=== PATIENT | male | born 2000 | race Caucasian/White ===

== ENCOUNTER 2020-04-09 19:31 | Emergency (ER) | payer OTHER ==
[~2020-04-09] VITALS: Ht 177.8 cm; Wt 68.0 kg
[2020-04-09 19:40] VITALS: BP 106/67
--- NOTE | 2020-04-09 20:07 | ED Integumentary General ---
General Chief Complaint: Allergic Reaction Stated Complaint: RASH ALL OVER BODY Nursing Triage Note: PT AMBULATE TO TRIAGE WITH C/O RASH AFTER BEING SPLASHED WITH A CHEMICAL AT WORK. PT STATES THAT THE EXPOSURE WAS AT 1600 YESTERDAY. PT REPORTS TAKING BENEDRYL AND CORTISONE 10 WITHOUT RELIEF. PT REPORTS HE HAS BEEN EXPOSED TO THIS CHEMICAL BEFORE AND THE OTC MEDS HAVE HELPED. Source: patient Exam Limitations: no limitations History of Present Illness Date Seen by Provider: Apr 09, 2020 Time Seen by Provider: 19:56 Initial Comments Patient is a 19-year-old male who presents to the emergency department today with a chief complaint of exposure to a chemical called isocyanate. This chemic al is used to make polyurethane. Patient states that he splashed this on himself yesterday to his forearms and also he got splashed on the top of the head. He has had reactions to this medication in the past. He states normally it causes him to have some hives this is his largest exposure however. Patient states normally he applies cortisone 10 to the affected areas and he has resolution of symptoms fairly quickly. He states it is not working today. He states that when he showered and washed the chemical down onto his shoulders back and chest. He states he is developed significant hives and coalescing of the rash over the course of the last 24 hours. Patient denies any nausea vomiting shortness of breath wheezing. He has no past medical history, no past surgical history, he is not allergic to any medications. The patient does smoke cigarettes and is counseled on cessation. All other review of systems reviewed and negative except as stated. Timing/Duration: yesterday Severity: moderate Location: scalp, torso, extremities Possible Cause: other (Isocyanate) Modifying Factors: improves with topical steriods Associated Symptoms: hives, rash Allergies and Home Medications Allergies Coded Allergies: No Known Allergies (Verified Allergy, Unknown, 04/09/20) Patient Home Medication List Home Medication List Reviewed: Yes Review of Systems Review of Systems Constitutional: no symptoms reported EENTM: see HPI Respiratory: no symptoms reported Cardiovascular: no symptoms reported Gastrointestinal: no symptoms reported Genitourinary: no symptoms reported Musculoskeletal: no symptoms reported Skin: pruritus, rash All Other Systems Reviewed Negative Unless Noted: Yes Past Ztgwfbw-Gkckpv-Epxnqv Hx Patient Social History Alcohol Use: Occasionally Uses Recreational Drug Use: No Smoking Status: Current Everyday Smoker Type Used: Cigarettes 2nd Hand Smoke Exposure: Yes Recent Foreign Travel: No Contact w/Someone Who Travel: No Recent Infectious Disease Expo: No Recent Hopitalizations: No Physical Abuse: No Sexual Abuse: No Mistreated: No Fear: No Seasonal Allergies Seasonal Allergies: No Past Medical History Surgeries: No Respiratory: No Cardiac: No Neurological: No Genitourinary: No Gastrointestinal: No Musculoskeletal: No Endocrine: No HEENT: No Cancer: No Psychosocial: No Integumentary: No Blood Disorders: No Physical Exam Vital Signs Vital Signs - First Documented 04/09/20 19:40 Temp 37.0 Pulse 87 Resp 17 B/P (MAP) 106/67 (80) O2 Delivery Room Air Capillary Refill : Less Than 3 Seconds General Appearance: WD/WN, no apparent distress HEENT: normal ENT inspection Neck: full range of motion Cardiovascular: regular rate, rhythm, no murmur Respiratory: lungs clear, normal breath sounds, no respiratory distress, no accessory muscle use Back: normal inspection Extremities: normal range of motion Skin: normal color, warm/dry, rash (Patient has significant hives to his torso both anterior and posterior. Coalescing edematous rash to the anterior surface of both forearms. No bullae. No drainage.) Progress/Results/Core Measures Results/Orders My Orders Orders - CHRISTY MACIAS MD Dexamethasone Injection (Decadron Inje (04/09/20 20:15) Vital Signs/I&O 04/09/20 19:40 Temp 37.0 Pulse 87 Resp 17 B/P (MAP) 106/67 (80) O2 Delivery Room Air Blood Pressure Mean: 80 Departure Impression Primary Impression: Allergic contact dermatitis Qualified Codes: L23.5 - Allergic contact dermatitis due to other chemical products Disposition: HOME, SELF-CARE Condition: Stable Departure-Patient Inst. Decision time for Depature: 20:10 Patient Instructions: Contact Dermatitis (DC) Add. Discharge Instructions: You can take [id number]-[id number] Benadryl 1 to 2 pills every 4-6 hours as needed for itching Also ndfo-idn-rtofugq Pepcid daily will help with itching. Take the Medrol Dosepak as prescribed. Follow-up with [facility] in 2 to 3 days if symptoms are not improving. Your prescription for the Medrol Dosepak has been sent to the [facility] pharmacy on [address]. All discharge instructions reviewed with patient and/or family. Voiced understanding. Scripts Methylprednisolone (Methylprednisolone Dose Pack) 4 Mg Tab.ds.pk 4 MG PO UD for 6 Days, #21 PKG PER DOSE PACK INSTRUCTIONS Prov: CHRISTY MACIAS MD 04/09/20 CHRISTY MACIAS MD Apr 09, 2020 20:07
[2020-04-09] MEDS ORDERED: METH4TAB10 PO (20:14)
== END 2020-04-09 20:20 | disposition home or self-care (01) ==
LOC: ER 19:35
DX: L23.9 Allergic contact dermatitis, unspecified cause (principal); F17.210 Nicotine dependence, cigarettes, uncomplicated
CPT/HCPCS: 99284

== ENCOUNTER 2020-04-14 11:16 | Emergency (ER) | payer OTHER ==
[~2020-04-14] VITALS: Ht 175.3 cm; Wt 68.0 kg
[~2020-04-14 11:16] MED LIST: METH4TAB10 PO
--- NOTE | 2020-04-14 11:55 | ED Syncope ---
General Chief Complaint: General Problems/Pain Stated Complaint: PASSED, AND CONVULSING Nursing Triage Note: PT AMB TO RM 5 WITH COMPLAINT OF PASSING OUT AND CONVULSIONS. STATES WAS WALKING OUT OF THE BATHROOM WHEN HE FELT LIKE HE WAS GOING TO PASS OUT. STATES HE FELT A HEAD ROSEN. PT THEN PASSED OUT ON THE FLOOR FOR APPROX 20-30 SECONDS. PER GIRLFRIEND, PT WAS CONVULSING. DENIES LOSS OF BOWEL OR BLADDER. STATES FELT DAZED FOR ABOUT 30 MINUTES AFTER. DENIES HISTORY OF SEIZURE. History of Present Illness Date Seen by Provider: Apr 14, 2020 Time Seen by Provider: 11:43 Initial Comments Patient presents ER by private conveyance with chief complaint of around 9:00 this morning he was feeling Poorly got up to get a drink and when he went back to his bed he started to feel like his about to pass out. 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 He says it felt like that. He says he remembers the dog immediately coming to him and her members most of the situation and it was only out for about a second or 2. He got something drink and something to eat after that because he still felt fuzzy and was not feeling any better so he decided come in. He has a father and grandmother both have type 2 diabetes as well as his father had early onset coronary disease in his 30s but no history of sudden cardiac . He has no known medical history and does not follow with a doctor. He does not check his blood sugar. For the past week the patient has had some skin irritation related to chemical from his work it was similar to poison kaylie and he was put on steroids and Benadryl one tablet every 4 hours. Otherwise he does not take any medications. No fevers chills nausea vomiting or pain. He denies striking his head Allergies and Home Medications Allergies Coded Allergies: No Known Allergies (Verified Allergy, Unknown, 04/09/20) Home Medications Methylprednisolone 4 Mg Tab.ds.pk, 4 MG PO UD PER DOSE PACK INSTRUCTIONS Prescribed by: CHRISTY MACIAS on 04/09/202013 Patient Home Medication List Home Medication List Reviewed: Yes Review of Systems Constitutional: No chills, No diaphoresis, No fever EENTM: No ear discharge, No ear pain Respiratory: No cough, No short of breath Cardiovascular: No chest pain, No edema Gastrointestinal: No abdominal pain, No constipation, No diarrhea, No nausea Genitourinary: No discharge, No dysuria Musculoskeletal: No back pain, No joint pain All Other Systems Reviewed Negative Unless Noted: Yes Past Mqitssg-Ddnynu-Fgysiy Hx Patient Social History Alcohol Use: Occasionally Uses Recreational Drug Use: Yes Drug of Choice: marijuana Smoking Status: Current Everyday Smoker Type Used: Cigarettes 2nd Hand Smoke Exposure: Yes Recent Foreign Travel: No Contact w/Someone Who Travel: No Recent Infectious Disease Expo: No Recent Hopitalizations: No Ebola Symptoms: Denies Symptoms Listed Immunizations Up To Date Tetanus Booster (TDap): Unknown PED Vaccines UTD: Yes Seasonal Allergies Seasonal Allergies: No Past Medical History Surgeries: No Respiratory: No Cardiac: No Neurological: No Genitourinary: No Gastrointestinal: No Musculoskeletal: No Endocrine: No HEENT: No Cancer: No Psychosocial: No Integumentary: No Blood Disorders: No Physical Exam Vital Signs Vital Signs - First Documented 04/14/20 11:22 Temp 36.3 Pulse 76 Resp 18 B/P (MAP) 143/79 O2 Delivery Room Air Capillary Refill : Height, Weight, BMI Height: '" Weight: lbs. oz. kg; 22.00 BMI Method: General Appearance: No Apparent Distress, WD/WN HEENT: PERRL/EOMI, TMs Normal, Normal ENT Inspection, Pharynx Normal, Moist Mucous Membranes Neck: Full Range of Motion, Normal Inspection Cardiovascular: Regular Rate, Rhythm, Normal Peripheral Pulses Respiratory: Lungs Clear, Normal Breath Sounds, No Accessory Muscle Use, No Respiratory Distress Gastrointestinal: Non Tender, Soft Extremities: Normal Capillary Refill, Normal Inspection, Normal Range of Motion Neurologic/Psychiatric: Alert, Oriented x3, No Motor/Sensory Deficits, Normal Mood/Affect, primary care physician II-XII Norm as Tested Cranial Nerves: Normal Hearing, Normal Speech, PERRL Coordination/Gait: Normal Gait Motor/Sensory: No Motor Deficit, No Sensory Deficit Skin: Normal Color, Warm/Dry Progress/Results/Core Measures Results/Orders Lab Results Laboratory Tests Test 04/14/20 11:29 04/14/20 12:01 Range/Units White Blood Count 12.5 H 4.3-11.0 10^3/uL Red Blood Count 5.20 4.30-5.52 10^6/uL Hemoglobin 15.8 13.3-17.7 g/dL Hematocrit 47 40-54 % Mean Corpuscular Volume 90 80-99 fL Mean Corpuscular Hemoglobin 30 25-34 pg Mean Corpuscular Hemoglobin Concent 34 32-36 g/dL Red Cell Distribution Width 12.7 10.0-14.5 % Platelet Count 197 130-400 10^3/uL Mean Platelet Volume 12.5 H 9.0-12.2 fL Immature Granulocyte % (Auto) 1 % Neutrophils (%) (Auto) 85 H 42-75 % Lymphocytes (%) (Auto) 10 L 12-44 % Monocytes (%) (Auto) 4 0-12 % Eosinophils (%) (Auto) 0 0-10 % Basophils (%) (Auto) 0 0-10 % Neutrophils # (Auto) 10.6 H 1.8-7.8 10^3/uL Lymphocytes # (Auto) 1.2 1.0-4.0 10^3/uL Monocytes # (Auto) 0.6 0.0-1.0 10^3/uL Eosinophils # (Auto) 0.0 0.0-0.3 10^3/uL Basophils # (Auto) 0.0 0.0-0.1 10^3/uL Immature Granulocyte # (Auto) 0.1 0.0-0.1 10^3/uL Sodium Level 138 135-145 MMOL/L Potassium Level 4.0 3.6-5.0 MMOL/L Chloride Level 102 98-107 MMOL/L Carbon Dioxide Level 25 21-32 MMOL/L Anion Gap 11 5-14 MMOL/L Blood Urea Nitrogen 12 7-18 MG/DL Creatinine 1.06 0.60-1.30 MG/DL Estimat Glomerular Filtration Rate > 60 BUN/Creatinine Ratio 11 Glucose Level 174 H 70-105 MG/DL Calcium Level 9.4 8.5-10.1 MG/DL Corrected Calcium 8.5-10.1 MG/DL Total Bilirubin 0.6 0.1-1.0 MG/DL Aspartate Amino Transf (AST/SGOT) 10 5-34 U/L Alanine Aminotransferase (ALT/SGPT) 12 0-55 U/L Alkaline Phosphatase 66 40-136 U/L Troponin I < 0.028 <0.028 NG/ML B-Type Natriuretic Peptide < 10.0 <100.0 PG/ML Total Protein 7.4 6.4-8.2 GM/DL Albumin 4.9 H 3.2-4.5 GM/DL Urine Color YELLOW Urine Clarity CLEAR Urine pH 5.5 5-9 Urine Specific [place] 1.020 1.016-1.022 Urine Protein NEGATIVE NEGATIVE Urine Glucose (UA) TRACE H NEGATIVE Urine Ketones NEGATIVE NEGATIVE Urine Nitrite NEGATIVE NEGATIVE Urine Bilirubin NEGATIVE NEGATIVE Urine Urobilinogen 0.2 < = 1.0 MG/DL Urine Leukocyte Esterase NEGATIVE NEGATIVE Urine RBC (Auto) NEGATIVE NEGATIVE Urine RBC NONE /HPF Urine WBC NONE /HPF Urine Squamous Epithelial Cells NONE /HPF Urine Crystals NONE /LPF Urine Bacteria NEGATIVE /HPF Urine Casts NONE /LPF Urine Mucus NEGATIVE /LPF Urine Culture Indicated NO Urine Opiates Screen NEGATIVE NEGATIVE Urine Oxycodone Screen NEGATIVE NEGATIVE Urine Methadone Screen NEGATIVE NEGATIVE Urine Propoxyphene Screen NEGATIVE NEGATIVE Urine Barbiturates Screen NEGATIVE NEGATIVE Ur Tricyclic Antidepressants Screen NEGATIVE NEGATIVE Urine Phencyclidine Screen NEGATIVE NEGATIVE Urine Amphetamines Screen NEGATIVE NEGATIVE Urine Methamphetamines Screen NEGATIVE NEGATIVE Urine Benzodiazepines Screen NEGATIVE NEGATIVE Urine Cocaine Screen NEGATIVE NEGATIVE Urine Cannabinoids Screen POSITIVE H NEGATIVE My Orders Orders - TOM BOYKIN Chest Pa/Lat (2 View) (04/14/20 11:49) Continuous Ekg Monitoring (04/14/20 11:49) Ekg Tracing (04/14/20 11:49) Troponin I (04/14/20 11:49) BNP (04/14/20 11:49) Cbc With Automated Diff (04/14/20 11:49) Comprehensive Metabolic Panel (04/14/20 11:49) Orthostatic Vital Signs (12-19 (04/14/20 11:55) Ua Culture If Indicated (04/14/20 12:01) Drug Screen Stat (Urine) (04/14/20 12:01) Vital Signs/I&O 04/14/20 04/14/20 11:22 12:05 Temp 36.3 Pulse 76 60 64 72 Resp 18 B/P (MAP) 143/79 122/64 112/72 121/67 O2 Delivery Room Air Progress Progress Note : Time: 11:59 Progress Note Sounds vasovagal. Regular orthostatic vital signs check some labs to rule out an anemia or infection and get a chest x-rays we can evaluate the size of his heart for some kind of congenital cardiomegaly. Afterwards we can have him follow-up for a clinic appointment with the automated manufacturing instructor. A blood sugar at this time we'll not be as useful since he ate since the incident however her hyperglycemia is in the differential. Initial ECG Impression Date: Apr 14, 2020 Initial ECG Impression Time: 11:20 Initial ECG Rate: 64 Initial ECG Rhythm: Normal Sinus Initial ECG Intervals: Normal Initial ECG Impression: Normal, Nonspecific Changes Initial ECG Comparisson: No Previous ECG Available Comment Normal sinus rhythm without clinically relevant ST elevation or depression. Diagnostic Imaging Diagonstic Imaging: Xray Plain Films/CT/US/NM/MRI: chest Comments NAME: KENYA DIAMOND [facility] REC#: [id number] PT STATUS: REG ER : 2000 PHYSICIAN: TOM BOYKIN MD ADMIT DATE: 04/14/20/ER Draft Date of Exam:04/14/20 CHEST PA/LAT (2 VIEW) INDICATION: Syncope. FINDINGS: The heart size and its configuration are normal. No abnormal vascular congestion. No edema, pneumonia, effusion, or pneumothorax. IMPRESSION: Normal 2 view chest. Dictated on workstation # [id number] Dict: 04/14/20 1232 Trans: 04/14/20 1234 [id number] Interpreted by: ALEXANDER AGUIRRE Electronically signed by: Reviewed: Reviewed by Me Departure Impression Primary Impression: Syncope and collapse Disposition: 01 HOME, SELF-CARE Condition: Stable Departure-Patient Inst. Decision time for Depature: 12:36 Referrals: NO,LOCAL PHYSICIAN (PCP) Primary Care Physician TOM BOYKIN (Family) Primary Care Physician LAURA ASTUDILLO MD [facility] Patient Instructions: Syncope (Fainting) (DC) Add. Discharge Instructions: Would like to follow up with the automated manufacturing instructor by calling by calling for an appointment in the next 1-[address] Astudillo. Drink plenty of fluids. If it happens again and you can check a blood sugar this will help rule out low blood sugar. Establish care with a primary care doctor in the next 2-4 weeks. They can help you look for sources of syncope not related to your heart. Return to the ER if you're having significant chest pain, continued passing out episodes or other worrisome symptoms. All discharge instructions reviewed with patient and/or family. Voiced understanding. Work/School Note: Work Release Form Date Seen in the Emergency Department: Apr 14, 2020 Return to Work: Apr 15, 2020 Restrictions: No Restrictions Copy Copies To 1: LAURA ASTUDILLO MD FACP FAC CCDS TOM BOYKIN Apr 14, 2020 11:55
[2020-04-14 11:57] LABS: BASOPHILS % (AUTO) 0 % (0-10); EOSINOPHILS % (AUTO) 0 % (0-10); HEMATOCRIT 47 % (40-54); HEMOGLOBIN 15.8 g/dL (13.3-17.7); LYMPHOCYTES # (AUTO) 1.2 10^3/uL (1.0-4.0); LYMPHOCYTES % (AUTO) 10 % (12-44); MEAN CORPUSCULAR HEMOGLOBIN 30 pg (25-34); MEAN CORPUSCULAR HGB CONC 34 g/dL (32-36); MEAN CORPUSCULAR VOLUME 90 fL (80-99); MEAN PLATELET VOLUME 12.5 fL (9.0-12.2); MONOCYTES # (AUTO) 0.6 10^3/uL (0.0-1.0); MONOCYTES % (AUTO) 4 % (0-12); NEUTROPHILS # (AUTO) 10.6 10^3/uL (1.8-7.8); NEUTROPHILS % (AUTO) 85 % (42-75); PLATELET COUNT 197 10^3/uL (130-400); WHITE BLOOD COUNT 12.5 10^3/uL (4.3-11.0)
[2020-04-14 11:58] LABS: ALBUMIN 4.9 GM/DL (3.2-4.5); CHLORIDE 102 MMOL/L (98-107); SODIUM 138 MMOL/L (135-145)
[2020-04-14 12:00] LABS: CALCIUM 9.4 MG/DL (8.5-10.1)
[2020-04-14 12:01] LABS: GLUCOSE 174 MG/DL (70-105); TOTAL PROTEIN 7.4 GM/DL (6.4-8.2)
[2020-04-14 12:02] LABS: CARBON DIOXIDE 25 MMOL/L (21-32)
[2020-04-14 12:03] LABS: BILIRUBIN,TOTAL 0.6 MG/DL (0.1-1.0)
[2020-04-14 12:04] LABS: ALKALINE PHOSPHATASE 66 U/L (40-136); CREATININE SERUM 1.06 MG/DL (0.60-1.30); GFR ESTIMATED > 60
[2020-04-14 12:06] LABS: BUN/CREATININE RATIO 11
[2020-04-14 12:06] LABS: BILIRUBIN,URINE NEGATIVE (NEGATIVE); CLARITY,URINE CLEAR; COLOR,URINE YELLOW; GLUCOSE, URINE (UA) TRACE (NEGATIVE); KETONES,URINE NEGATIVE (NEGATIVE); LEUKOCYTE ESTERASE ,URINE NEGATIVE (NEGATIVE); NITRITE,URINE NEGATIVE (NEGATIVE); PH,URINE 5.5 (5-9); PROTEIN,URINE NEGATIVE (NEGATIVE)
[2020-04-14 12:07] LABS: ALANINE AMINOTRANSFERASE 12 U/L (0-55)
[2020-04-14 12:14] LABS: BACTERIA,URINE NEGATIVE /HPF
[2020-04-14 12:17] LABS: AMPHETAMINE SCREEN, URINE NEGATIVE (NEGATIVE); BARBITURATE SCREEN URINE NEGATIVE (NEGATIVE); BENZODIAZEPINES SCREEN URINE NEGATIVE (NEGATIVE); CANNABINOID SCREEN, URINE POSITIVE (NEGATIVE); COCAINE SCREEN URINE NEGATIVE (NEGATIVE); METHADONE STAT NEGATIVE (NEGATIVE); METHAMPHETAMINE SCREEN URINE S NEGATIVE (NEGATIVE); OPIATE SCREEN URINE NEGATIVE (NEGATIVE); OXYCODONE STAT NEGATIVE (NEGATIVE); PROPOXYPHENE STAT NEGATIVE (NEGATIVE); TRICYCLIC ANTIDEPRESSANTS SCRE NEGATIVE (NEGATIVE)
--- NOTE | 2020-04-14 12:34 | Diagnostic Imaging Report ---
INDICATION: Syncope. FINDINGS: The heart size and its configuration are normal. No abnormal vascular congestion. No edema, pneumonia, effusion, or pneumothorax. IMPRESSION: Normal 2 view chest. Dictated by: Dictated on workstation # [id number]
== END 2020-04-14 12:57 | disposition home or self-care (01) ==
LOC: EDUNIT# 11:16 → ER 11:18
DX: R55 Syncope and collapse (principal); F17.210 Nicotine dependence, cigarettes, uncomplicated; Z79.52 Long term (current) use of systemic steroids
CPT/HCPCS: 36415; 71046; 80053; 80306; 81000; 83880; 84484; 85025; 93005